=== PATIENT | male | born 1975 | race Caucasian/White ===

== ENCOUNTER 2024-09-17 16:44 | Emergency (ER) | payer MEDICAID ==
[~2024-09-17] VITALS: Ht 170.2 cm; Wt 81.0 kg
[2024-09-17 16:53] VITALS: O2SAT 99
[2024-09-17 17:02] VITALS: BP 111/80; PULSE 71; RESP 18; TEMP 36.9; O2SAT 100
== END 2024-09-17 18:48 | disposition home or self-care (01) ==
LOC: ER 16:44
DX: S83.92XA Sprain of unspecified site of left knee, initial encounter (principal); X50.1XXA Overexertion from prolonged static or awkward postures, initial encounter; Y93.66 Activity, soccer; Y92.89 Other specified places as the place of occurrence of the external cause; Y99.8 Other external cause status
CPT/HCPCS: 99281; 99283